=== PATIENT | female | born 1990 | race Caucasian/White ===

== ENCOUNTER 2016-03-16 22:19 | Emergency (ER) | payer OTHER ==
--- NOTE | 2016-03-16 22:29 | UCPHY ---
H & P Patient Type: Established HPI/ROS: HPI CHIEF COMPLAINT: Cough, congestion, joint pain, muscle aches, I feel like I have the flu" HISTORY OF PRESENT ILLNESS: This patient is a 25-year-old female, significant past medical history for asthma presents to the urgent care with flu-like symptoms. Patient tells me that she thinks she has the flu. She states for the past 24-48 hour she has had upper respiratory tract infection with cough, congestion, sore throat, fever chills muscle aches and joint pain. Patient denies nausea vomiting or diarrhea denies urinary symptoms denies sick contacts. Past Medical History: Asthma Past Surgical History: No significant surgical history Social History: Denies use of drugs alcohol tobacco products Family History: Noncontributory ROS REVIEW OF SYSTEMS: A comprehensive 10 point review of systems is otherwise negative aside from elements mentioned in the history of present illness. Exam Constitutional triage nursing summary reviewed, vital signs reviewed, awake/ alert. Eyes normal conjunctivae and sclera, EOMI, PERRLA. HENT normal inspection, atraumatic, moist mucus membranes, no epistaxis, neck supple/ no meningismus, no raccoon eyes. Respiratory clear to auscultation bilaterally, normal breath sounds, no respiratory distress, no wheezing. Cardiovascular rate normal, regular rhythm, no murmur, no edema, distal pulses normal. Gastrointestinal soft, non-tender, no rebound, no guarding, normal bowel sounds, no distension, no pulsatile mass. Genitourinary no CVA tenderness. Musculoskeletal no midline vertebral tenderness, full range of motion, no calf swelling, no tenderness of extremities, no meningismus, good pulses, neurovascularly intact. Skin pink, warm, & dry, no rash, skin atraumatic. Neurologic awake, alert and oriented x 3, AAOx3, moves all 4 extremities equally, motor intact, sensory intact, CN II-XII intact, normal cerebellar, normal vision, normal speech. Psychiatric normal mood/affect. Heme/Lymph/Immune no lymphadenopathy. Differential Diagnosis: Includes but is not limited to in a particular order: URI, viral syndrome, influenza Medical Decision Making: This patient had a rapid flu. Here in the Urgent Care she appears well nontoxic no acute distress Re-evaluation: 2235: this patient has influenza test is positive. She will be started on Tamiflu she understands drink lots of fluids keep her fever down Tylenol Motrin return to the urgent care if she develops any worsening symptoms questions or concerns. Source: Patient - Medical/Surgical History Hx Asthma: Yes Hx Chronic Respiratory Disease: No Hx Diabetes: No Hx Cardiac Disease: No Hx Renal Disease: No Hx Cirrhosis: No Hx Alcoholism: No Hx HIV/AIDS: No Hx Splenectomy or Spleen Trauma: No Other PMH: med hx-asthma. surg-wisdom teeth - Family History Significant Family History: No pertinent family hx - Social History Smoking Status: Current every day smoker Constitutional: Initial Vital Signs Temperature (C) 37.6 C 03/16/16 22:28 Heart Rate 90 03/16/16 22:28 Respiratory Rate 18 03/16/16 22:28 Blood Pressure 139/98 H 03/16/16 22:28 O2 Sat (%) 95 03/16/16 22:28 O2 Delivery Mode Room Air Allergies/Adverse Reactions: No Known Allergies Allergy (Verified 03/16/16 22:27) Home Medications: Medication Instructions Recorded Qvar 80 (RX) 06/12/15 Oseltamivir Phosphate [Tamiflu 75 75 mg PO BID #10 cap 03/16/16 mg (*)] Medical Decision Making - Data Points Laboratory Results: 03/16/16 22:20 Influenza Typ A,B (DFA) Pending Departure - Departure Disposition: Home, Routine, Self-Care Clinical Impression: Influenza Condition: Good Instructions: Influenza (ED) Additional Instructions: 1. Drink lots of fluids stay well-hydrated 2. return to the urgent care or emergency room if she develops any worsening symptoms questions or concerns 3.Take Tamiflu as prescribed. Referrals: Winston Arias MD [Primary Care Provider] - As per Instructions Prescriptions: Oseltamivir Phosphate [Tamiflu 75 mg (*)] 75 mg PO BID #10 cap - PQRS PQRS Measurement: n/a
[2016-03-16 22:30] VITALS: BP 139/98; PULSE 90; RESP 18; TEMP 99.7; O2SAT 95
[2016-03-16] MEDS ORDERED: OSELTAMIVIR PHOSPHATE 75 MG CAP PO ONE (22:37)
== END 2016-03-16 22:53 | disposition home or self-care (01) ==
LOC: CED 22:19
DX: J11.1 Influenza due to unidentified influenza virus with other respiratory manifestations (principal)
CPT/HCPCS: 87400-PO; 99214-PO; G0463-PO

== ENCOUNTER 2018-07-03 11:05 | Outpatient (CLI) | payer OTHER ==
--- NOTE | 2018-07-03 10:55 | PDGENHP ---
History and Physical History and Physical: CARE: [facility] HPI: Patient is a 27 yo G 1 P 0 @ 38 weeks who presents to L&D for external cephalic version of breech baby. EDC: 07/17/18 which is based on early Ultrasound at 9 weeks. Her is complicated by: anemia, breech presentation at 37 weeks. Review of Systems: Constitutional: Denies any fever, chills, or fatigue HEENT: denies any visual changes, difficulty swallowing, hearing loss Cardiovascular: Denies any chest pain, palpitations, leg swelling Respiratory: denies any cough, wheezing, or shortness of breath GI: Denies any nausea, vomiting, diarrhea, constipation : denies any dysuria, urgency, frequency, vaginal bleeding Musculoskeletal: denies any muscle or bone pain Skin: denies any rashes Neuro: denies any headache, seizures, lightheadedness, dizziness, or loss of consciousness Psychiatric: denies any depression, anxiety, or SI/HI thoughts HISTORY: Previous OB history: nullip Social history: , SAHM Family history: hypercholesterolemia, Past medical history: asthma, Qvar PRN Past surgical history: wisdom teeth Medications: PNV, flonase, Qvar Allergies (list reaction): lidocaine, artificial sweetners. LABS: Rh: A+ ABS: Neg Rubella: Immune HbsAg: NR HIV: NR VDRL: NR 1hr: 77 GC: Neg Chlamydia: Neg Pap: Normal 2018 GBS: neg BMI: (prepreg) 25 PHYSICAL EXAM: Constitutional: WN, A&Ox3 HEENT: normocephalic atraumatic, supple Heart: RRR, no murmur Chest: CTA-B Skin: warm, dry, intact Abdomen: Soft, nontender, gravid SVE: not performed Extremities: trace edema, negative homans sign Neuro: grossly normal Psych: normal affect assessment: FHT baseline 135, +accels, no decels, moderate variability Contractions: none Assessment: 1) 27 yo G 1 P 0 with IUP@ 38 weeks 2) GBS neg 3) Cat 1 FHR tracing Plan: 1) Outpatient admit to L&D 2) External cephalic version
[2018-07-03] MEDS ORDERED: OLIVE OIL 118 ML BTL MISC ONE ×2 (11:26→11:51)
[2018-07-03] MEDS ORDERED: TERBUTALINE SULFATE 1 MG/ML VIAL ONE (11:27)
[2018-07-03] MEDS ORDERED: TERBUTALINE SULFATE 1 MG/ML VIAL IV ONE (11:51)
[2018-07-03 12:10] LABS: PLATELET COUNT 169 10^3/uL (150-400)
[2018-07-03 14:24] VITALS: BP 106/62
--- NOTE | 2018-07-03 14:39 | OBGCSDC ---
General Delivery Information - General Info : 1 Para: 0 Abortions: 0 Labs: Patient ABO/Rh A POSITIVE 07/03/18 11:30 Hct 39.0 % (38.0-47.0) 07/03/18 11:30 - Hospital Course Antepartum: 07/03/18 14:38 discharge home today, successful version, f/u in clinic next week. [place] Data RADHIKA: 07/17/18 Gestational Age: 38 week(s) and 0 day(s) Discharge Information - Discharge Information Instruction/Follow Up: One Week
== END 2018-07-03 15:15 | disposition home or self-care (01) ==
LOC: FOBOP 11:05
PROVIDERS: ATTEND Obstetrics & Gynecology
DX: O32.1XX0 Maternal care for breech presentation, not applicable or unspecified (principal); Z3A.38 38 weeks gestation of pregnancy
CPT/HCPCS: J3105

== ENCOUNTER 2018-07-20 03:00 | Inpatient (IN) | payer OTHER ==
[2018-07-20] MEDS ORDERED: LIDOCAINE 1% 300 MG/30 ML SDV SC PRN (03:53)
[2018-07-20] MEDS ORDERED: MISOPROSTOL 200 MCG TAB PO PRN (03:53)
[2018-07-20] MEDS ORDERED: AMMONIA AROMATIC 1 EACH AMP IH PRN (03:53)
[2018-07-20] MEDS ORDERED: EPSOM SALT 454 GM TP PRN (03:53)
[2018-07-20] MEDS ORDERED: LR 1,000 ML IV PRN (03:53)
[2018-07-20] MEDS ORDERED: IBUPROFEN 600 MG TAB PO PRN (03:53)
[2018-07-20] MEDS ORDERED: OLIVE OIL 118 ML BTL MISC PRN (03:53)
[2018-07-20] MEDS ORDERED: OXYTOCIN/RINGERS LACTATE 1,000 ML IV PRN (03:53)
[2018-07-20] MEDS ORDERED: TERBUTALINE SULFATE 1 MG/ML VIAL IV PRN (03:53)
[2018-07-20 04:09] LABS: PLATELET COUNT 191 10^3/uL (150-400)
[2018-07-20] MEDS ORDERED: OLIVE OIL 118 ML BTL MISC ONE (06:09)
[2018-07-20] MEDS ORDERED: LIDOCAINE 1% 300 MG/30 ML SDV ONE (06:09)
[2018-07-20] MEDS ORDERED: AMMONIA AROMATIC 1 EACH AMP IH ONE (06:09)
[2018-07-20] MEDS ORDERED: TERBUTALINE SULFATE 1 MG/ML VIAL ONE (06:09)
[2018-07-20] MEDS ORDERED: MISOPROSTOL 200 MCG TAB ONE (06:09)
[2018-07-20] MEDS ORDERED: OXYTOCIN 10 UNIT/ML VIAL ONE (06:09)
[2018-07-20] MEDS: CALCIUM CARBONATE 500 MG CHEWABLE TAB PO PRN ×2 (08:34→10:13)
[2018-07-20] MEDS ORDERED: LR 500 ML IV PRN (09:29)
[2018-07-20] MEDS ORDERED: OXYTOCIN/RINGERS LACTATE 500 ML IV SCH (09:30)
--- NOTE | 2018-07-20 09:57 | PDGENHP ---
History and Physical History and Physical: CARE: [facility] HPI: Patient is a 27 yo G 1 P 0 at 40.3 weeks ega who presents to L&D with complaints of SROM at 1920 last night - mod amt. clear fluid. Regular contractions began at 2330 and she presented to labor and delivery at 0400. SVE at that time was 3-50/-2 posterior. Baby has been active, denies vaginal bleeding other than light bloody show. FHTs have been reassuring via doptone, currently has a category 1 EFM. EDC: 07/17/18 which is based on LMP: 10/17/17 which is known and consistent with Ultrasound at 9 weeks. Her is complicated by: -anemia -asthma -pruritis that began at 34 weeks: bile acids and CMP WNL -breech presentation at 37 weeks - successful external version at that time. Vertex confirmed today by SVE. Review of Systems: Constitutional: Denies any fever, chills, or fatigue HEENT: denies any visual changes, difficulty swallowing, hearing loss Cardiovascular: Denies any chest pain, palpitations, leg swelling Respiratory: denies any cough, wheezing, or shortness of breathe GI: Denies any nausea, vomiting, diarrhea, constipation : denies any dysuria, urgency, frequency, vaginal bleeding Musculoskeletal: denies any muscle or bone pain Skin: denies any rashes Neuro: denies any headache, seizures, lightheadedness, dizziness, or loss of consciousness Psychiatric: denies any depression, anxiety, or SI/HI thoughts HISTORY: Previous OB history: none Past medical history: anemia, asthma Past surgical history: none Medications: PNV, Qvar, Flonase Allergies (list reaction): lidocaine sensitivity: h/o prolonged numbness after administration with dental work; sucralose; aspartame LABS: Rh: A pos ABS: Neg Rubella: Immune HbsAg: NR HIV: NR VDRL: NR 1hr: 77 GC: Neg Chlamydia: Neg Pap: Normal - 04/18/17 GBS: neg PHYSICAL EXAM: Constitutional: WN, A&Ox3 Skin: pink, warm, dry HEENT: normocephalic atraumatic, supple Heart: RRR, no murmur Chest: CTA-B Abdomen: Soft, nontender, gravid SVE: 4/70/-2 vertex Extremities: sml edema, negative luis a's sign Neuro: grossly normal Psych: normal affect assessment: Reassuring FHTs, baseline 130 +accels, no decels, moderate variability Contractions: toco q 7-10 mod Assessment: 1) 24 yo G 1 P 0 with IUP@ 40.3 weeks ega 2) SROM at 1920 last night - currently latent phase labor 3) GBS neg 4) Cat 1 FHR tracing 5) VSS - afebrile Plan: 1) Admit to L&D 2)Reviewed options with patient: expectant management (as she has had some minimal cervical change) vs pitocin augmentation. Patient is agreeable to pitocin. She is open to pain management options, but not desiring anything at this time. 3) Minimal vaginal exams 4) Anticipate
--- NOTE | 2018-07-20 11:57 | OBPROG ---
Labor Progress Note Assessment/Plan: Assessment: 27 y/o P0 with SROM since 07/19 Active labor Pitocin augmentation - 4 mu Category 1 EFM Requesting epidural Plan: Anesthesia notified Anticipate 07/20/18 17:54 Objective: 07/20/18 03:55 Patient ABO/Rh A POSITIVE 07/20/18 03:55 - SVE Dilation (cm): 6 Effacement (%): 90 Station: -2 Membranes: SROM Amniotic Fluid Color: Clear - Contraction Pattern Assessment Current Contraction Pattern: Regular Oxytocin Orders Assessment - Pre-Induction/Augmentation Assessment Gestational Age: 40 week(s) and 3 day(s) ICD10 Worksheet Patient Problems: Problems Problem Status Onset Vaginal delivery Acute Breech presentation Acute
[2018-07-20] MEDS ORDERED: fentaNYL 2MCG/ML/BUP 0.1% RTU 100 ML BAG EP ONE (12:01)
[2018-07-20] MEDS ORDERED: BUPIVACAINE 0.25% 10 ML SDV ONE (12:01)
[2018-07-20] MEDS ORDERED: PHENYLEPHRINE HCL 100 MCG/ML SYR ONE (12:01)
--- NOTE | 2018-07-20 12:06 | PREANESOB ---
Obstetric Pre-Anesthesia Info - General Info : 1 Para: 0 RADHIKA: 07/17/18 Gestational Age: 40 week(s) and 3 day(s) - Labor Status Cervical Dilation per last OB SVE: 6 Station per last OB SVE: -2 Rupture of Membranes Date: 07/19/18 Rupture of Membranes Time: 19:20 Amniotic Fluid Color: Clear Anesthesia Allergies/Adverse Reactions: Allergy/AdvReac Type Severity Reaction Status Date / Time aspartame Allergy Verified 07/20/18 03:21 [artifical sweetener] broccoli Allergy Verified 07/20/18 03:21 green pepper Allergy Verified 07/20/18 03:21 lidocaine Allergy Verified 07/20/18 03:21 pineapple Allergy Verified 07/20/18 03:21 sucralose [Splenda] Allergy Verified 07/20/18 03:21 Home Medications: Medication Instructions Recorded Fluticasone Propionate [Flonase 07/03/18 Allergy Relief] 07/03/18 Qvar 40 Redihaler (*) 1 puffs BID 07/03/18 Visit Medications: Generic Name Dose Route Start Last Admin Trade Name Freq PRN Reason Stop Dose Admin Ammonia (Aromatic Spirit) 1 each 07/20/18 03:53 Ammonia Aromatic IH 07/30/18 03:52 ONCE PRN Fainting Calcium Carbonate 500 mg 07/20/18 08:19 07/20/18 10:13 Tums PO 01/16/19 08:18 500 mg TID PRN Administration Reflux Lactated Ringer's 1,000 mls @ 0 mls/hr 07/20/18 03:53 07/20/18 10:04 Lr IV 07/21/18 03:52 1,000 mls PRN PRN Administration SEE PROTOCOL CONDITIONS Protocol Per Protocol Oxytocin/Lactated Ringer's 1,000 mls @ 0 mls/hr 07/20/18 03:53 Pitocin 20 Units/Lr (Premix) IV PRN PRN Post bleeding As Directed Lactated Ringer's 500 mls @ 500 mls/hr 07/20/18 09:29 Lr IV 07/21/18 09:31 PRN PRN Maternal Hypotension Oxytocin/Lactated Ringer's 500 mls @ 0 mls/hr 07/20/18 09:30 07/20/18 10:03 Pitocin 30 Units/Lr (Premix) IV 01/16/19 09:29 500 mls CONT JIM Administration Protocol Per Protocol Ibuprofen 600 mg 07/20/18 03:53 Motrin PO ONCE PRN post , pain Lidocaine HCl 300 mg 07/20/18 03:53 Lidocaine Hcl 1% SC 01/16/19 03:52 ONCE PRN episiotomy Magnesium Sulfate 454 gm 07/20/18 03:53 Epsom Salt TP 01/16/19 03:52 Q1H PRN perineal discomfort Misoprostol 800 - 1,000 mcg 07/20/18 03:53 Cytotec PO 01/16/19 03:52 ONCE PRN Vaginal Atony/Bleeding [place] Oil 118 ml 07/20/18 03:53 Sweet Oil MISC 01/16/19 03:52 ONCE PRN perineal massage Terbutaline Sulfate 0.25 mg 07/20/18 03:53 Brethine IV 01/16/19 03:52 ONCE PRN Tachysystole Discontinued Medications Generic Name Dose Route Start Last Admin Trade Name Freq PRN Reason Stop Dose Admin Ammonia (Aromatic Spirit) Confirm 07/20/18 06:09 Ammonia Aromatic Administered 07/20/18 06:10 Dose 1 each IH .STK-MED ONE Bupivacaine HCl Confirm 07/20/18 12:01 Sensorcaine 0.25% Sdv Administered 07/20/18 12:02 Dose 10 ml .ROUTE .STK-MED ONE Fentanyl/Bupivacaine HCl Confirm 07/20/18 12:01 Fentanyl/Bupivacaine/Ns 2 Mcg/Ml 0.1% (Premix Administered 07/20/18 12:02 Dose 100 ml EP .STK-MED ONE Lidocaine HCl Confirm 07/20/18 06:09 Lidocaine Hcl 1% Administered 07/20/18 06:10 Dose 300 mg .ROUTE .STK-MED ONE Misoprostol Confirm 07/20/18 06:09 Cytotec Administered 07/20/18 06:10 Dose 1,000 mcg .ROUTE .STK-MED ONE [place] Oil Confirm 07/20/18 06:09 Sweet Oil Administered 07/20/18 06:10 Dose 118 ml MISC .STK-MED ONE Oxytocin Confirm 07/20/18 06:09 Pitocin Administered 07/20/18 06:10 Dose 40 unit .ROUTE .STK-MED ONE Phenylephrine HCl Confirm 07/20/18 12:01 Neosynephrine Administered 07/20/18 12:02 Dose 1,000 mcg .ROUTE .STK-MED ONE Terbutaline Sulfate Confirm 07/20/18 06:09 Brethine Administered 07/20/18 06:10 Dose 1 mg .ROUTE .STK-MED ONE - Anesthesia History Response to Local Anesthetics: Prolonged Anesthesia & Operative History: No Prior Problems Family Anesthesia History: Not Applicable - Social History Substance Use/Abuse: Denies - Vital Signs Height/Weight (Nursing): Height 166.37 cm Weight 87.543 kg - Focused Exam Neck exam: FROM Mallampati Score: Class 2 Mouth exam: normal dental/mouth exam Pulmonary: no respiratory distress Cardiovascular: regular rate and rhythym Labs: 07/20/18 03:55 Patient ABO/Rh A POSITIVE 07/20/18 03:55 - Plan Anesthetic Plan: YADIEL Consent Signed and on Chart: Yes Patient/Guardian Understands and Agrees to Plan: Yes
[2018-07-20] MEDS ORDERED: ONDANSETRON 4 MG/2 ML VIAL IVP PRN (12:28)
[2018-07-20] MEDS ORDERED: PHENYLEPHRINE HCL 100 MCG/ML SYR IVP PRN (12:28)
[2018-07-20] MEDS ORDERED: fentaNYL 2MCG/ML/BUP 0.1% RTU 100 ML EP SCH (12:30)
[2018-07-20] MEDS ORDERED: LR 500 ML IV SCH (12:30)
[2018-07-20] MEDS ORDERED: HYDROCORTISONE 0.5% CREAM TP PRN (17:49)
[2018-07-20] MEDS ORDERED: SIMETHICONE 80 MG TAB CHEW PO PRN (17:49)
[2018-07-20] MEDS ORDERED: HYDROCODONE/APAP 5/325 TAB PO PRN (17:49)
--- NOTE | 2018-07-20 17:54 | OBDEL ---
Info Type: Vaginal Presentation at Delivery: Vertex L&D Analgesia/Anesthesia Type: Epidural GBS+: No Intrapartum Medications: Generic Name Dose Route Start Last Admin Trade Name Makayla PRN Reason Stop Dose Admin Calcium Carbonate 500 mg 07/20/18 08:19 07/20/18 10:13 Tums PO 01/16/19 08:18 500 mg TID PRN Administration Reflux Lactated Ringer's 1,000 mls @ 0 mls/hr 07/20/18 03:53 07/20/18 10:04 Lr IV 07/21/18 03:52 1,000 mls PRN PRN Administration SEE PROTOCOL CONDITIONS Protocol Per Protocol Oxytocin/Lactated Ringer's 500 mls @ 0 mls/hr 07/20/18 09:30 07/20/18 10:03 Pitocin 30 Units/Lr (Premix) IV 01/16/19 09:29 500 mls CONT JIM Administration Protocol Per Protocol Fentanyl/Bupivacaine HCl 100 mls @ 0 mls/hr 07/20/18 12:30 07/20/18 13:35 Fentanyl/Bupivacaine/Ns 2 Mcg/Ml 0.1% (Premix EP 07/30/18 12:29 100 mls CONT JIM Administration Protocol As Directed Phenylephrine HCl 100 mcg 07/20/18 12:28 07/20/18 13:35 Neosynephrine IVP 01/16/19 12:27 100 mcg .Q2M PRN Administration Hypotension Discontinued Medications Generic Name Dose Route Start Last Admin Trade Name Makayla PRN Reason Stop Dose Admin Ibuprofen 600 mg 07/20/18 03:53 07/20/18 17:12 Motrin PO 600 mg ONCE PRN Administration post , pain Indications for Delivery: SROM Vaginal Delivery - Delivery Provider Delivery Physician/CNM: Greta Daniel - Labor and Delivery Onset of Contractions Date: 07/19/18 Onset of Contractions Time: 23:30 Onset of Contractions Type: Augmented Rupture of Membranes Date: 07/19/18 Rupture of Membranes Time: 19:20 Rupture of Membranes Type: Spontaneous Amniotic Fluid Color: Clear Dilation Complete Date: 07/20/18 Dilation Complete Time: 15:07 Placenta Delivery Date: 07/20/18 Placenta Delivery Time: 16:29 Total Hours of Labor: 16 Laceration: 2nd Degree (Due to close proximity to rectal sphincter, Dr Ziegler called to repair laceration.), Other (Specify) (left vaginal wall) Repair: 3-0, 4-0, Vicryl Vaginal Sponge Count Correct: Yes Vaginal Needle Count Correct: Yes Vaginal Sweep Performed: Yes EBL: 250 Delivery Events: None [place] Data RADHIKA: 07/17/18 Gestational Age: 40 week(s) and 3 day(s) [place] Delivery Date: 07/20/18 Delivery Time: 16:25 Sex of : Female Score (1 Min): 8 Score (5 Min): 9 ICD10 Worksheet Patient Problems: Problems Problem Status Onset Vaginal delivery Acute Breech presentation Acute - ICD10 Problem Qualifiers (1) Vaginal delivery
[2018-07-20] MEDS: ACETAMINOPHEN 325 MG TAB PO PRN (19:32)
[2018-07-21] MEDS: IBUPROFEN 600 MG TAB PO PRN ×5 (00:22→23:50)
[2018-07-21] MEDS: ACETAMINOPHEN 325 MG TAB PO PRN ×4 (01:35→19:33)
[2018-07-21] MEDS: DOCUSATE SODIUM 100 MG CAP PO PRN ×2 (07:35→19:34)
--- NOTE | 2018-07-21 11:41 | OBPP ---
Progress Note Assessment/Plan: Assessment: 1. yesterday 2. breast feeding difficulty 3. first PP day Plan: 1. continue PO medication for pain relief 2. support 3. d/c home tomorrow. 07/21/18 11:37 Subjective/ Course: 07/21/18 11:41 Pt is very tired and states her perineum is very sore. Voiding without difficulty, working on breast feeding. Objective: 07/20/18 03:55 Patient ABO/Rh A POSITIVE 07/20/18 03:55 Temp Pulse Resp BP Pulse Ox 37.2 C 67 16 113/73 07/20/18 21:07 07/20/18 21:07 07/20/18 21:07 07/20/18 21:07 VSS Uterine Position/Fundal Height: At Umbilicus Uterine Tone: Firm
--- NOTE | 2018-07-21 13:26 | POSTANESTH ---
Post Anesthetic Evaluation Cardiovascular Status: Normal, Stable, Similar to Pre-Op Cond Respiratory Status: Normal, Stable, Similar to Pre-op Cond. Level of Consciousness/Mental Status: Can Participate in Eval, Alert and Oriented Pain Control: Adequate, Prn Tx Ordered Nausea/Vomiting Control: Adequate, Prn Tx Ordered Complications Possibly Related to Anesthesia: None Noted Notes: Pt seen and examined. Block completely resolved, back site c/d/i, no e/e/e. Able to ambulate. Denies N/V/AGUDELO. Noted some pruritis. Rated pain control as excellent. No apparent adverse effects from the anesthesia.
[2018-07-22] MEDS: ACETAMINOPHEN 325 MG TAB PO PRN ×3 (01:27→14:14)
[2018-07-22] MEDS: IBUPROFEN 600 MG TAB PO PRN ×2 (06:10→11:48)
[2018-07-22] MEDS: DOCUSATE SODIUM 100 MG CAP PO PRN (07:52)
--- NOTE | 2018-07-22 08:24 | OBGCSDC ---
General Delivery Information - General Info : 1 Para: 1 Abortions: 0 Type: Vaginal L&D Analgesia/Anesthesia Type: Epidural Admission Date: 07/20/18 Labs: Patient ABO/Rh A POSITIVE 07/20/18 03:55 Hct 39.8 % (38.0-47.0) 07/20/18 03:55 Temp Pulse Resp BP Pulse Ox 07/21/18 20:00 37.3 C 60 16 112/62 96 - Hospital Course : 07/21/18 11:41 Pt is very tired and states her perineum is very sore. Voiding without difficulty, working on breast feeding. 07/22/18 08:23 Pt doing well, feels like she is leaking urine. Pain is manageable with PO tylenol and ibuprofen. Breast feeding is improving. Vaginal - Delivery Provider Delivery Physician/CNM: Greta Daniel - Diagnosis Labor: Augmented Rupture of Membranes Type: Spontaneous Amniotic Fluid Color: Clear Laceration: 2nd Degree (Due to close proximity to rectal sphincter, Dr Ziegler called to repair laceration.), Other (Specify) (left vaginal wall) Repair: 3-0, 4-0, Vicryl Delivery Events: None - Delivery EBL: 250 [place] Data RADHIKA: 07/17/18 Gestational Age: 40 week(s) and 5 day(s) [place] Delivery Date: 07/20/18 Delivery Time: 16:25 Sex of : Female Weight (gm): 2912 g Score (1 Min): 8 Score (5 Min): 9 Discharge Information - Discharge Information Condition: Good Instruction/Follow Up: Two Weeks, Four Weeks, Six Weeks
[2018-07-22 09:47] VITALS: BP 125/80
== END 2018-07-22 15:30 | disposition home or self-care (01) | DRG 807 ==
LOC: FLD 03:00 → FOB 20:25
PROVIDERS: ADMIT Advanced Practice Midwife; ATTEND Advanced Practice Midwife
DX: O99.013 Anemia complicating pregnancy, third trimester (principal); Z37.0 Single live birth; O70.1 Second degree perineal laceration during delivery; Z3A.40 40 weeks gestation of pregnancy; O99.52 Diseases of the respiratory system complicating childbirth; J45.909 Unspecified asthma, uncomplicated
CPT/HCPCS: J2370; J2590; J3105

== ENCOUNTER → 2018-08-10 | Outpatient (CLI) | payer OTHER | LOC: FLACT 11:41 ==

== ENCOUNTER → 2018-08-20 | Outpatient (CLI) | payer OTHER | LOC: FLACT 11:43 ==